=== PATIENT | female | born 1940 | race African-American/Black ===

== ENCOUNTER 2020-11-19 14:36 | Observation (INO) ==
[2020-11-19] MEDS ORDERED: ALUMINUM/MAGNES/SIMETH MAX STR 30 ML UDCUP PO PRN (15:37)
[2020-11-19] MEDS ORDERED: LIDOCAINE 2% VISCOUS 100 ML BOTTLE SWISH/SWAL STA (15:37)
[2020-11-19] MEDS ORDERED: ALUM/MAG/SIMETH/LIDO VISC 1:1 30 ML BOTTLE PO ONE (15:45)
[2020-11-19] MEDS ORDERED: ALUM/MAG/SIMETH/LIDO VISC 1:1 30 ML BOTTLE PO STA (15:46)
[2020-11-19 16:15] LABS: Basophils # 0.1 10*3/uL (0.0-0.2); Basophils % 0.8 % (0.0-0.8); Eosinophils # 0.1 10*3/uL (0.0-0.87); Eosinophils % 1.1 % (0.00-10.9); Hematocrit 36.4 VOL% (35.7-47.0); Hemoglobin 12.4 GM/DL (12.0-16.0); Immature Granulocytes % 0.3 %; Immature Granulocytes Absolute 0.02 #; Lymphocytes # 2.6 10*3/uL (1.4-4.0); Lymphocytes % 32.9 % (21.3-54.2); Mean Corpuscular HGB Conc 34.1 GM/DL (32-36); Mean Platelet Volume 9.7 FL (9.6-12.0); Monocytes % 7.7 % (1.7-12.7); Neutrophils % 57.2 % (38.7-73.9); Platelet Count 269 T/CUMM (130-400); Red Cell Distribution Width 13.6 % (9.3-17.3)
[2020-11-19 16:43] LABS: Albumin 4.3 G/DL (3.4-5.0); Bilirubin,Total 0.5 MG/DL (0.2-1.0); Calcium 9.4 MG/DL (8.5-10.1); Osmolality,Calculated 280.3 MOS/KG (273-304); Total Protein 8.8 G/DL (6.4-8.3)
[2020-11-19] MEDS ORDERED: GLUCAGON 1 MG VIAL IM PRN (17:56)
[2020-11-19] MEDS ORDERED: DEXTROSE 50% 25 GM/50 ML VIAL IV PRN (17:56)
[2020-11-19] MEDS ORDERED: ACETAMINOPHEN 325 MG TABLET PO PRN (17:56)
[2020-11-20 05:46] LABS: Basophils % 0.5 % (0.0-0.8); Eosinophils # 0.1 10*3/uL (0.0-0.87); Eosinophils % 1.1 % (0.00-10.9); Hemoglobin 10.8 GM/DL (12.0-16.0); Immature Granulocytes % 0.2 %; Immature Granulocytes Absolute 0.01 #; Lymphocytes # 2.2 10*3/uL (1.4-4.0); Lymphocytes % 39.4 % (21.3-54.2); Mean Corpuscular HGB Conc 33.8 GM/DL (32-36); Mean Corpuscular Volume 91.7 FL (87-102); Mean Platelet Volume 9.1 FL (9.6-12.0); Monocytes % 10.2 % (1.7-12.7); Neutrophils % 48.6 % (38.7-73.9); Platelet Count 217 T/CUMM (130-400); Red Blood Count 3.49 MC/CUMM (3.8-5.5); Red Cell Distribution Width 13.7 % (9.3-17.3); White Blood Count 5.7 T/CUMM (4-12)
[2020-11-20 06:30] LABS: Albumin 3.6 G/DL (3.4-5.0); Bilirubin,Total 0.6 MG/DL (0.2-1.0); Calcium 8.9 MG/DL (8.5-10.1); Osmolality,Calculated 277.5 MOS/KG (273-304); Risk Ratio 2.63; Thyroid Stimulating Hormone 1.53 uIU/ml (0.358-3.74); Total Protein 7.4 G/DL (6.4-8.3); VLDL CHOLESTEROL 16.2 MG/DL
[2020-11-20] MEDS ORDERED: ALUM/MAG/SIMETH/LIDO VISC 1:1 30 ML BOTTLE PO ONE (09:30)
[2020-11-20] MEDS ORDERED: POTASSIUM CHLORIDE 20 MEQ TABLET PO ONE (10:09)
[2020-11-20] MEDS ORDERED: SIMVASTATIN 10 MG TABLET PO SCH (10:30)
[2020-11-20] MEDS ORDERED: ASCORBIC ACID 500 MG TABLET PO SCH (10:30)
[2020-11-20] MEDS ORDERED: ASPIRIN CHEW 81 MG TABLET PO SCH (10:30)
[2020-11-20] MEDS ORDERED: POTASSIUM CHLORIDE 20 MEQ TABLET PO SCH (10:30)
[2020-11-20] MEDS ORDERED: lisinopriL 20 MG TABLET PO SCH (11:00)
[2020-11-20] MEDS ORDERED: PANTOPRAZOLE 40 MG TABLET PO SCH ×2 (11:00→21:00)
[2020-11-20] MEDS ORDERED: SIMETHICONE CHEW 125 MG TABLET PO PRN (11:05)
[2020-11-20] MEDS ORDERED: amLODIPine 10 MG TABLET PO SCH (11:30)
[2020-11-20 11:36] VITALS: BP 138/87
[2020-11-20] MEDS ORDERED: SPIRONOLACTONE 25 MG TABLET PO SCH (12:30)
[2020-11-20] MEDS ORDERED: carvediloL 6.25 MG TABLET PO SCH (17:00)
[2020-11-21] MEDS ORDERED: MULTIVITAMIN (CENTRUM) TABLET PO SCH (09:00)
[2020-11-21] MEDS ORDERED: COENZYME Q10 100 MG CAPSULE PO SCH (09:00)
[2020-11-21] MEDS ORDERED: ZINC GLUCONATE 50 MG TABLET PO SCH (09:00)
[2020-11-21] MEDS ORDERED: POTASSIUM CHLORIDE 20 MEQ TABLET PO SCH (09:00)
[2020-11-21] MEDS ORDERED: ROSUVASTATIN 20 MG TABLET PO SCH (09:00)
[2020-11-21] MEDS ORDERED: ASPIRIN CHEW 81 MG TABLET PO SCH (09:00)
[2020-11-21] MEDS ORDERED: MAGNESIUM OXIDE 400 MG TABLET PO SCH (09:00)
== END 2020-11-20 14:24 | disposition home or self-care (01) ==
LOC: N.EDINP 14:36 → N.ED 14:36 → N.TELEN 20:20
PROVIDERS: ADMIT Internal Medicine; ATTEND Internal Medicine